=== PATIENT | male | born 1990 | race Caucasian/White ===

== ENCOUNTER 2018-08-31 07:02 | Outpatient (CLI) | payer BC ==
--- NOTE | 2018-08-31 07:51 | ULT ---
RIGHT UPPER QUADRANT ABDOMINAL ULTRASOUND: Date: 08/31/18 HISTORY: Abnormal LFTs. TECHNIQUE: Multiplanar Curtis scale and color Doppler images were obtained in a right upper quadrant abdominal ult rasound. FINDINGS: The liver is normal in echogenicity without focal lesions or intrahepatic ductal dilatation. The gall bladder is normal without stones, sludge, gallbladder wall thickening, or pericholecystic fluid. The common bile duct is normal, measuring 5.0 mm. The pancreas cannot be seen secondary to bowel gas. The right kidney is normal in echogenicity withou t hydronephrosis or calculus and measures 10.0 cm in length. IMPRESSION: Unremarkable exam. POS: H
== END 2018-08-31 07:03 | disposition home or self-care (01) ==
LOC: BICULT 07:02
PROVIDERS: ATTEND Nurse Practitioner Family
DX: R94.5 Abnormal results of liver function studies (principal)
CPT/HCPCS: 76705